=== PATIENT | female | born 1960 ===

== ENCOUNTER → 2021-01-18 | Outpatient (CLI) | payer BC ==
[~2021-01-18] MED LIST: ASPI-963 PO; INSU100V8 SQ; METF10002 PO; OMNIPAQUE 350 MG/ML, 100ML BOTTLE ONE; SIMV20TA19 PO; VALS1TAB7 PO
== END | disposition home or self-care (01) ==
LOC: CFH 12:48
PROVIDERS: ATTEND Internal Medicine Gastroenterology
DX: K82.0 Obstruction of gallbladder (principal); R10.12 Left upper quadrant pain
CPT/HCPCS: 74177; 82565; Q9967